=== PATIENT | female | born 1945 | race Caucasian/White ===

== ENCOUNTER 2017-03-16 01:03 | Emergency (ER) | payer MEDICARE, MEDICAID ==
[~2017-03-16] VITALS: Ht 160 cm; Wt 81.8 kg
[~2017-03-16 01:03] MED LIST: ASPI325T4 PO; CEFAZOLIN 2 GM IV; CHOL4POW3 PO; DIAZ5TAB PO; ENOX30SY4 SQ; ERGO500017 PO; HYDR-3241 PO; INSU100V5 SQ-INSULIN; INSU100V8 SQ; NPH,100V SQ-INSULIN; ONDA4VIA4 PO; OXYC5TAB3 PO; VANC1VIA3 PO
[2017-03-16 01:04] VITALS: BP 144/79
[2017-03-16] MEDS ORDERED: OXYcodone 5 MG/5 ML ORAL.SOL UDC PO ONE (03:00)
[2017-03-16] MEDS ORDERED: DIAZEPAM 5 MG TABLET PO ONE (03:00)
[2017-03-16] MEDS ORDERED: DIAZEPAM 5 MG TABLET ONE (03:17)
[2017-03-16] MEDS ORDERED: OXYcodone 5 MG/5 ML ORAL.SOL UDC ONE (03:24)
== END 2017-03-16 04:43 | disposition home or self-care (01) ==
LOC: ED 02:51
DX: M46.1 Sacroiliitis, not elsewhere classified (principal); M54.5 Low back pain; E11.9 Type 2 diabetes mellitus without complications; Z90.49 Acquired absence of other specified parts of digestive tract; Z90.89 Acquired absence of other organs; Z88.6 Allergy status to analgesic agent; Z88.0 Allergy status to penicillin; Z88.8 Allergy status to other drugs, medicaments and biological substances; Z79.4 Long term (current) use of insulin
CPT/HCPCS: 99284; J7512

== ENCOUNTER 2019-03-14 21:25 | Emergency (ER) | payer MEDICARE, MEDICAID ==
[~2019-03-14] VITALS: Ht 160 cm; Wt 75.7 kg
[~2019-03-14 21:25] MED LIST changes: +ASPI325T17 PO; -ASPI325T4 PO; -ONDA4VIA4 PO; +ONDA4VIA60 PO
[2019-03-14 21:27] VITALS: BP 176/81
[2019-03-14] MEDS ORDERED: KETOROLAC 30 MG/1 ML ONE (21:40)
[2019-03-14] MEDS ORDERED: KETOROLAC 30 MG/1 ML IM ONE ×2 (22:00)
== END 2019-03-14 22:56 | disposition home or self-care (01) ==
LOC: ED 22:16
DX: M17.11 Unilateral primary osteoarthritis, right knee (principal); E11.65 Type 2 diabetes mellitus with hyperglycemia; Z87.891 Personal history of nicotine dependence; W18.30XA Fall on same level, unspecified, initial encounter; Y93.89 Activity, other specified; Y92.410 Unspecified street and highway as the place of occurrence of the external cause; Y99.0 Civilian activity done for income or pay
CPT/HCPCS: 73564; 96372; 99283; J1885

== ENCOUNTER 2019-09-21 15:54 | Inpatient (IN) | payer MEDICARE, MEDICAID ==
[~2019-09-21] VITALS: Ht 160 cm; Wt 69.0 kg
[~2019-09-21 15:54] MED LIST changes: +FERR325T16 PO; +INSU100I11 SQ-INSULIN; +INSU100I13 SQ
[2019-09-21] MEDS ORDERED: TRAM50TA2 PO (16:22)
[2019-09-21] MEDS ORDERED: FENTANYL PF 100 MCG/2ML ONE ×2 (16:29→17:47)
[2019-09-21] MEDS ORDERED: ONDANSETRON 2MG/ML, 2ML IV PRN ×2 (16:30→21:00)
[2019-09-21] MEDS ORDERED: PROMETHAZINE 25 MG/ML, 1ML IV PRN (16:30)
[2019-09-21] MEDS ORDERED: MEPERIDINE/PF 25MG/ML,1ML IVPush PRN (16:30)
[2019-09-21] MEDS ORDERED: OXYcodone 5 MG/5 ML ORAL.SOL UDC PO PRN (16:30)
[2019-09-21] MEDS ORDERED: EPHEDRINE 50 MG/ML, 1ML IVPush PRN (16:30)
[2019-09-21] MEDS ORDERED: HYDROmorphone 2 MG/ML, 1ML IVPush PRN (16:30)
[2019-09-21] MEDS ORDERED: hydrALAzine 20 MG/ML, 1ML IV PRN (16:30)
[2019-09-21] MEDS ORDERED: LABETALOL 5MG/ML, 20ML IV PRN (16:30)
[2019-09-21] MEDS ORDERED: SODIUM CHLORIDE 0.9% PF 10ML ONE (16:32)
[2019-09-21] MEDS ORDERED: DEXAMETHASONE 4 MG/ML, 1ML ONE ×2 (16:32)
[2019-09-21] MEDS ORDERED: SUCCINYLCHOLINE 20 MG/ML, 10ML ONE (16:32)
[2019-09-21] MEDS ORDERED: NEOSTIGMINE 1 MG/ML, 10ML ONE (16:32)
[2019-09-21] MEDS ORDERED: LIDOCAINE-MPF 2% ,5ML ONE (16:32)
[2019-09-21] MEDS ORDERED: LACTATED RINGERS 1,000 ML IV ONE (16:55)
[2019-09-21] MEDS ORDERED: KETOROLAC 30 MG/1 ML ONE (17:20)
[2019-09-21] MEDS ORDERED: BUPIVACAINE/PF 0.5% ONE (17:29)
[2019-09-21] MEDS ORDERED: OXYcodone 5 MG/5 ML ORAL.SOL UDC ONE (17:48)
[2019-09-21] MEDS ORDERED: HYDROmorphone 1 MG/ML, 1ML VIAL ONE (17:48)
[2019-09-21] MEDS: FENTANYL PF 100 MCG/2ML IV PRN ×2 (17:49→17:58)
[2019-09-21] MEDS ORDERED: ENTER SLIDING SCALE INSULIN IF ORDERED XX PRN (21:00)
[2019-09-21] MEDS: HYDROmorphone 2MG TABLET PO PRN (23:39)
[2019-09-22 00:11] VITALS: BP 145/62
[2019-09-22] MEDS: POTASSIUM CHLORIDE 20 MEQ in LACTATED RINGERS 1,000 ML IV SCH ×2 (00:20→17:43)
[2019-09-22] MEDS: CEFOTETAN PMX 1GM/50ML 50 ML IVPB SCH ×2 (00:20→22:12)
[2019-09-22] MEDS: INSULIN GLARGINE 100 UNITS/ML, PEN SQ-INSULIN SCH ×2 (00:25→22:36)
[2019-09-22] MEDS: INSULIN REGULAR, HUMAN 100 UNIT/ML 3ML VIAL LOW DOSE SS SQ-INSULIN SCH ×5 (01:05→22:36)
[2019-09-22 04:07] VITALS: BP 154/78
[2019-09-22 08:00] VITALS: BP 168/79
[2019-09-22] MEDS ORDERED: BACITRACIN 50,000 UNIT ONE (09:26)
[2019-09-22] MEDS ORDERED: FENTANYL PF 100 MCG/2ML ONE (10:09)
[2019-09-22] MEDS ORDERED: NEOSPORIN OINT, 15GM ONE (10:54)
[2019-09-22] MEDS ORDERED: CEFAZOLIN 1,000 MG ONE (10:58)
[2019-09-22] MEDS ORDERED: PROPOFOL 10 MG/ML, 20ML ONE (10:58)
[2019-09-22] MEDS ORDERED: DEXAMETHASONE 4 MG/ML, 1ML ONE (10:58)
[2019-09-22] MEDS ORDERED: ONDANSETRON 2MG/ML, 2ML ONE (10:58)
[2019-09-22] MEDS ORDERED: FENTANYL PF 100 MCG/2ML IV PRN (11:30)
[2019-09-22] MEDS ORDERED: ACETAMINOPHEN 325 MG TABLET PO PRN (11:30)
[2019-09-22] MEDS ORDERED: PROMETHAZINE 25 MG/ML, 1ML IV PRN (11:30)
[2019-09-22] MEDS ORDERED: HYDROmorphone 2 MG/ML, 1ML IVPush PRN (11:30)
[2019-09-22] MEDS ORDERED: MEPERIDINE/PF 25MG/0.5ML IVPush PRN (11:30)
[2019-09-22] MEDS ORDERED: DIAZEPAM 5 MG/ML, 2ML IVPush PRN (11:30)
[2019-09-22] MEDS ORDERED: OXYcodone 5 MG/5 ML ORAL.SOL UDC PO PRN (11:30)
[2019-09-22] MEDS ORDERED: ALBUTEROL SULFATE 2.5 MG/3 ML NPPB PRN (11:30)
[2019-09-22] MEDS ORDERED: LABETALOL 5MG/ML, 20ML IV PRN (11:30)
[2019-09-22] MEDS ORDERED: hydrALAzine 20 MG/ML, 1ML IV PRN (11:30)
[2019-09-22] MEDS ORDERED: KETOROLAC 30 MG/1 ML IV PRN (11:30)
[2019-09-22 11:59] VITALS: BP 159/76
[2019-09-22 14:00] VITALS: BP 145/66
[2019-09-22] MEDS: HYDROmorphone 2 MG/ML, 1ML IVPush PRN (15:45)
[2019-09-22] MEDS: HYDROmorphone 2MG TABLET PO PRN ×3 (17:47→23:05)
[2019-09-22 18:51] VITALS: BP 137/64
[2019-09-23 00:40] VITALS: BP 117/61
[2019-09-23 03:14] VITALS: BP 115/62
[2019-09-23] MEDS: HYDROmorphone 2MG TABLET PO PRN (05:15)
[2019-09-23] MEDS: INSULIN REGULAR, HUMAN 100 UNIT/ML 3ML VIAL LOW DOSE SS SQ-INSULIN SCH ×4 (07:00→20:32)
[2019-09-23 08:30] VITALS: BP 138/69
[2019-09-23] MEDS: POTASSIUM CHLORIDE 20 MEQ in LACTATED RINGERS 1,000 ML IV SCH (10:56)
[2019-09-23] MEDS: OXYcodone IR 5MG TABLET PO PRN ×3 (10:57→20:19)
[2019-09-23 14:25] VITALS: BP 139/69
[2019-09-23 20:10] VITALS: BP 144/77
[2019-09-23] MEDS: INSULIN GLARGINE 100 UNITS/ML, PEN SQ-INSULIN SCH (20:32)
[2019-09-24] MEDS: POTASSIUM CHLORIDE 20 MEQ in LACTATED RINGERS 1,000 ML IV SCH ×2 (00:28→14:27)
[2019-09-24] MEDS: OXYcodone IR 5MG TABLET PO PRN ×4 (00:33→15:31)
[2019-09-24 02:00] VITALS: BP 133/70
[2019-09-24 07:10] VITALS: BP 146/78
[2019-09-24] MEDS: INSULIN REGULAR, HUMAN 100 UNIT/ML 3ML VIAL LOW DOSE SS SQ-INSULIN SCH ×2 (07:35→11:25)
[2019-09-24] MEDS: HYDROmorphone 2 MG/ML, 1ML IVPush PRN (07:40)
[2019-09-24 14:05] VITALS: BP 127/64
[2019-09-24 15:29] VITALS: BP 124/66
== END 2019-09-24 16:15 | DRG 240 ==
LOC: ORIP 15:54 → 4NE 20:00
PROVIDERS: ADMIT Surgery; ATTEND Surgery
PROC: 0Y6N0Z0 Detachment at Left Foot, Complete, Open Approach (ICD-10-PCS; 2019-09-21)
PROC: 3E0T3BZ Introduction of Anesthetic Agent into Peripheral Nerves and Plexi, Percutaneous Approach (ICD-10-PCS; 2019-09-21)
PROC: 3E0T3BZ Introduction of Anesthetic Agent into Peripheral Nerves and Plexi, Percutaneous Approach (ICD-10-PCS; 2019-09-22)
PROC: 0Y6J0Z1 Detachment at Left Lower Leg, High, Open Approach (ICD-10-PCS; principal; 2019-09-22 10:00)
DX: E11.52 Type 2 diabetes mellitus with diabetic peripheral angiopathy with gangrene (principal); I96 Gangrene, not elsewhere classified; J44.9 Chronic obstructive pulmonary disease, unspecified; I10 Essential (primary) hypertension; F17.200 Nicotine dependence, unspecified, uncomplicated; Z99.81 Dependence on supplemental oxygen
CPT/HCPCS: 82962; 88307; 88311; G0378; J0690; J1100; J1170; J1815; J1885; J2405; J2704; J2710; J3010; J3480; J0330; J3490; J7120

== ENCOUNTER 2020-01-27 11:31 | Inpatient (IN) | payer MEDICARE, MEDICAID ==
[~2020-01-27] VITALS: Ht 160 cm; Wt 65.2 kg
[~2020-01-27 11:31] MED LIST changes: +TRAM50TA2 PO
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
--- NOTE | 2020-01-27 12:05 | NUR ---
pa at bedside to evaluate at this time.
[2020-01-27] MEDS ORDERED: DIPH,PERTUSS(ACELL),TET VAC/PF 0.5 ML IM-VACC ONE ×2 (12:11→12:30)
--- NOTE | 2020-01-27 12:15 | NUR ---
TDAP GIVEN AT THIS TIME. PT TOLERATED WELL.
[2020-01-27 12:25] LABS: BASOPHILS # (AUTO) 0.04 x10^3/uL (0-0.1); BASOPHILS % (AUTO) 1 % (0-1); EOSINOPHILS # (AUTO) 0.14 x10^3/uL (0-0.4); EOSINOPHILS % (AUTO) 2 % (1-7); LYMPHOCYTES % (AUTO) 20 % (22-44); MD NO; MEAN CORPUSCULAR HEMOGLOBIN 28.8 pg (27.0-34.8); MEAN CORPUSCULAR HGB CONC 32.9 g/dL (32.4-35.8); MEAN CORPUSCULAR VOLUME 87.5 fL (80-100); MEAN PLATELET VOLUME 9.6 fL (7.4-10.4); MONOCYTES # (AUTO) 0.45 x10^3/uL (0.2-0.8); MONOCYTES % (AUTO) 6 % (2-9); NEUTROPHILS # (AUTO) 5.74 x10^3/uL (1.8-6.8); NEUTROPHILS % (AUTO) 72 % (42-75); PLATELET COUNT 277 x10^3/uL (130-400); RED BLOOD COUNT 4.55 x10^6/uL (3.82-5.3); RED CELL DISTRIBUTION WIDTH 15.7 % (9.6-15.2)
[2020-01-27] MEDS ORDERED: SODIUM CHLORIDE FLUSH 10ML SYR IVF ONE (12:30)
[2020-01-27 12:36] LABS: ALANINE AMINOTRANSFERASE 13 U/L (12-78); ALBUMIN 2.8 g/dL (3.4-5.0); ANION GAP 5 mmol/L (5-15); CALCIUM 9.4 mg/dL (8.5-10.1); CHLORIDE 100 mmol/L (98-107); CREATININE 0.92 mg/dL (0.55-1.02)
[2020-01-27 12:38] LABS: ALKALINE PHOSPHATASE 129 U/L (45-117); BILIRUBIN,TOTAL 0.2 mg/dL (0.2-1.0)
--- NOTE | 2020-01-27 12:58 | NUR ---
report given to sonal tomlin.
[2020-01-27] MEDS ORDERED: SODIUM CHLORIDE 0.9% 1,000ML IVBOLUS ONE (13:30)
--- NOTE | 2020-01-27 13:35 | NUR ---
report received from AMY Herrmann at bedside. pt a&o, resps even and unlabored, nadn. bp and spo2 monitors in place pt to be admitted, pt updated with POC, agreeable.
--- NOTE | 2020-01-27 13:44 | NUR ---
labs and imaging reviewed by NIEVES Stephens, awaiting abx order. Per , pt does not need blood cx.
[2020-01-27] MEDS ORDERED: VANCOMYCIN PER PHARMACY MC PRN (14:00)
[2020-01-27] MEDS ORDERED: CEFEPIME 1 GM in DEXTROSE 5% 50 ML IV ONE (14:00)
--- NOTE | 2020-01-27 14:25 | NUR ---
piv placed by AMY Grier, report called to AMY Marrufo. Task RN Bill at bedside to admin meds. pt to be transported to medical floor shortly.
--- NOTE | 2020-01-27 14:43 | NUR ---
ACTUAL WEIGHT TAKEN AND DOCUMENTED. PHARMACY CALLED TO NOTIFY OF WEIGHT FOR VANCO PREP. IV CEFEPIME AND NS BOLUS STARTED.
[2020-01-27] MEDS ORDERED: VANCOMYCIN PER PHARMACY MC ONE (15:00)
[2020-01-27] MEDS ORDERED: VANCOMYCIN 1,500 MG in SODIUM CHLORIDE 0.9% 250 ML IV ONE (15:00)
[2020-01-27] MEDS ORDERED: SODIUM CHLORIDE 0.9% 1,000 ML IV SCH (15:08)
[2020-01-27] MEDS ORDERED: MORPHINE SULFATE 4 MG/ML, 1ML IVPush PRN (15:30)
[2020-01-27] MEDS ORDERED: ONDANSETRON 2MG/ML, 2ML IVPush PRN (15:30)
[2020-01-27] MEDS ORDERED: ONDANSETRON ODT 4 MG PO PRN (15:30)
[2020-01-27 16:17] VITALS: BP 172/78
[2020-01-27 16:51] LABS: HCT (SEDRATE) 37.1 % (34.6-47.8)
[2020-01-27] MEDS: CEFTAROLINE 600 MG in SODIUM CHLORIDE 0.9% 100 ML IV SCH (17:48)
[2020-01-27] MEDS: INSULIN LISPRO 100 UNITS/ML, PEN SQ-INSULIN SCH ×2 (17:48→21:10)
[2020-01-27 18:21] VITALS: BP 150/74
[2020-01-27] MEDS ORDERED: [UNRECOGNIZED DRUG - REMARK] MC PRN (22:30)
[2020-01-27] MEDS: OXYcodone IR 5MG TABLET PO PRN (23:36)
[2020-01-28 00:43] VITALS: BP 157/72
[2020-01-28 05:57] LABS: BASOPHILS # (AUTO) 0.06 x10^3/uL (0-0.1); BASOPHILS % (AUTO) 1 % (0-1); EOSINOPHILS # (AUTO) 0.22 x10^3/uL (0-0.4); EOSINOPHILS % (AUTO) 3 % (1-7); LYMPHOCYTES % (AUTO) 22 % (22-44); MD NO; MEAN CORPUSCULAR HEMOGLOBIN 28.9 pg (27.0-34.8); MEAN CORPUSCULAR HGB CONC 32.8 g/dL (32.4-35.8); MEAN CORPUSCULAR VOLUME 88.2 fL (80-100); MEAN PLATELET VOLUME 9.7 fL (7.4-10.4); MONOCYTES # (AUTO) 0.55 x10^3/uL (0.2-0.8); MONOCYTES % (AUTO) 7 % (2-9); NEUTROPHILS % (AUTO) 67 % (42-75); PLATELET COUNT 247 x10^3/uL (130-400); RED CELL DISTRIBUTION WIDTH 16.1 % (9.6-15.2)
[2020-01-28 06:06] LABS: ALBUMIN 2.5 g/dL (3.4-5.0); ANION GAP 5 mmol/L (5-15); CALCIUM 8.6 mg/dL (8.5-10.1); CHLORIDE 107 mmol/L (98-107)
[2020-01-28 06:18] LABS: ALANINE AMINOTRANSFERASE 12 U/L (12-78); ALKALINE PHOSPHATASE 112 U/L (45-117); BILIRUBIN,TOTAL 0.4 mg/dL (0.2-1.0); CREATININE 0.83 mg/dL (0.55-1.02); TOTAL PROTEIN 6.2 g/dL (6.4-8.2)
[2020-01-28 07:09] VITALS: BP 147/73
[2020-01-28] MEDS ORDERED: INSULIN GLARGINE 100 UNITS/ML, PEN SQ-INSULIN SCH (09:00)
[2020-01-28] MEDS: INSULIN LISPRO 100 UNITS/ML, PEN SQ-INSULIN SCH ×4 (09:02→20:46)
[2020-01-28] MEDS: CEFTAROLINE 600 MG in SODIUM CHLORIDE 0.9% 100 ML IV SCH (10:25)
[2020-01-28] MEDS: OXYcodone IR 5MG TABLET PO PRN ×2 (10:25→22:07)
[2020-01-28] MEDS ORDERED: BACITRACIN 50,000 UNIT ONE (14:18)
[2020-01-28] MEDS ORDERED: PROPOFOL 10 MG/ML, 20ML ONE (14:22)
[2020-01-28] MEDS ORDERED: FENTANYL PF 250 MCG/5ML ONE (14:22)
[2020-01-28] MEDS ORDERED: SUCCINYLCHOLINE 20 MG/ML, 10ML ONE (14:22)
[2020-01-28] MEDS ORDERED: ONDANSETRON 2MG/ML, 2ML IV PRN (14:30)
[2020-01-28] MEDS ORDERED: HYDROmorphone 2 MG/ML, 1ML IVPush PRN (14:30)
[2020-01-28] MEDS ORDERED: OXYcodone 5 MG/5 ML ORAL.SOL UDC PO PRN (14:30)
[2020-01-28] MEDS ORDERED: hydrALAzine 20 MG/ML, 1ML IV PRN (14:30)
[2020-01-28] MEDS ORDERED: LABETALOL 5MG/ML, 20ML IV PRN (14:30)
[2020-01-28] MEDS ORDERED: PROMETHAZINE 25 MG/ML, 1ML IV PRN (14:30)
[2020-01-28] MEDS ORDERED: DEXAMETHASONE 4 MG/ML, 1ML ONE (14:54)
[2020-01-28] MEDS ORDERED: OMNIPAQUE 350 MG/ML, 50 ML BOTTLE IV ONE (15:20)
[2020-01-28] MEDS ORDERED: VISIPAQUE 270 MG/ML, 50ML BOTTLE IV ONE (15:26)
[2020-01-28] MEDS ORDERED: HEPARIN 1,000 UNITS/ML, 10ML ONE (15:50)
[2020-01-28] MEDS ORDERED: PROTAMINE SULFATE 10 MG/ML, 5ML ONE (15:58)
[2020-01-28] MEDS ORDERED: VISIPAQUE 320MG/ML, 50ML BOTTLE IV ONE (16:06)
[2020-01-28] MEDS ORDERED: ONDANSETRON 2MG/ML, 2ML ONE (16:07)
[2020-01-28] MEDS ORDERED: BUPIVACAINE/PF 0.25% ONE (16:24)
[2020-01-28] MEDS ORDERED: VANCOMYCIN PER PHARMACY MC PRN (16:30)
[2020-01-28] MEDS ORDERED: VISIPAQUE 320 MG/ML, 150ML BOTTLE ONE (16:39)
[2020-01-28] MEDS ORDERED: VISIPAQUE 270 MG/ML, 50ML BOTTLE ONE (16:39)
[2020-01-28] MEDS ORDERED: LABETALOL 5MG/ML, 20ML ONE (16:56)
[2020-01-28] MEDS ORDERED: FENTANYL PF 100 MCG/2ML ONE (17:08)
[2020-01-28] MEDS: FENTANYL PF 100 MCG/2ML IV PRN ×2 (17:10→18:00)
[2020-01-28] MEDS: CEFTRIAXONE PMX 1GM/50ML 50 ML IV SCH (18:57)
[2020-01-28 19:08] VITALS: BP 123/74
[2020-01-28] MEDS ORDERED: VANCOMYCIN 1,600 MG in SODIUM CHLORIDE 0.9% 250 ML IV ONE (20:00)
[2020-01-28] MEDS ORDERED: PHARMACOKINETIC MONITORING MC PRN (20:00)
[2020-01-28] MEDS: METRONIDAZOLE PMX 500MG/100ML 100 ML IV SCH (20:11)
[2020-01-28] MEDS: INSULIN GLARGINE 100 UNITS/ML, PEN SQ-INSULIN SCH (20:46)
[2020-01-28] MEDS ORDERED: CEFTAROLINE 400 MG in SODIUM CHLORIDE 0.9% 100 ML IV SCH (23:00)
[2020-01-29 01:19] VITALS: BP 120/85
[2020-01-29] MEDS: OXYcodone IR 5MG TABLET PO PRN ×3 (02:38→21:43)
[2020-01-29] MEDS: METRONIDAZOLE PMX 500MG/100ML 100 ML IV SCH ×3 (04:02→21:44)
[2020-01-29 04:58] VITALS: BP 128/65
[2020-01-29 05:27] LABS: ALBUMIN 2.1 g/dL (3.4-5.0); ANION GAP 7 mmol/L (5-15); CALCIUM 8.6 mg/dL (8.5-10.1); CHLORIDE 107 mmol/L (98-107)
[2020-01-29 05:28] LABS: BASOPHILS # (AUTO) 0.02 x10^3/uL (0-0.1); BASOPHILS % (AUTO) 0 % (0-1); EOSINOPHILS # (AUTO) 0.02 x10^3/uL (0-0.4); EOSINOPHILS % (AUTO) 0 % (1-7); LYMPHOCYTES % (AUTO) 12 % (22-44); MD NO; MEAN CORPUSCULAR HEMOGLOBIN 29.3 pg (27.0-34.8); MEAN CORPUSCULAR HGB CONC 32.9 g/dL (32.4-35.8); MEAN CORPUSCULAR VOLUME 89.3 fL (80-100); MEAN PLATELET VOLUME 9.3 fL (7.4-10.4); MONOCYTES # (AUTO) 0.35 x10^3/uL (0.2-0.8); MONOCYTES % (AUTO) 5 % (2-9); NEUTROPHILS # (AUTO) 6.11 x10^3/uL (1.8-6.8); NEUTROPHILS % (AUTO) 83 % (42-75); PLATELET COUNT 194 x10^3/uL (130-400); RED BLOOD COUNT 3.61 x10^6/uL (3.82-5.3); RED CELL DISTRIBUTION WIDTH 15.9 % (9.6-15.2)
[2020-01-29 05:30] LABS: ALANINE AMINOTRANSFERASE 20 U/L (12-78); ALKALINE PHOSPHATASE 129 U/L (45-117); BILIRUBIN,TOTAL 0.4 mg/dL (0.2-1.0); CREATININE 0.73 mg/dL (0.55-1.02); TOTAL PROTEIN 5.5 g/dL (6.4-8.2)
[2020-01-29 06:52] VITALS: BP 127/90
[2020-01-29] MEDS: INSULIN LISPRO 100 UNITS/ML, PEN SQ-INSULIN SCH ×4 (08:08→21:58)
[2020-01-29] MEDS: INSULIN GLARGINE 100 UNITS/ML, PEN SQ-INSULIN SCH ×2 (09:09→21:57)
[2020-01-29] MEDS: CLOPIDOGREL 75 MG TABLET PO SCH (09:09)
[2020-01-29] MEDS: ENOXAPARIN 40 MG/0.4 ML SQ SCH (12:10)
[2020-01-29 12:47] VITALS: BP 116/59
[2020-01-29] MEDS: CEFTRIAXONE PMX 1GM/50ML 50 ML IV SCH (18:20)
[2020-01-29 18:37] VITALS: BP 124/58
[2020-01-29] MEDS ORDERED: VANCOMYCIN 1,200 MG in SODIUM CHLORIDE 0.9% 250 ML IV SCH (20:00)
[2020-01-30 04:15] VITALS: BP 149/76
[2020-01-30 05:56] LABS: MEAN CORPUSCULAR HEMOGLOBIN 29.2 pg (27.0-34.8); MEAN CORPUSCULAR HGB CONC 32.8 g/dL (32.4-35.8); MEAN PLATELET VOLUME 9.4 fL (7.4-10.4); PLATELET COUNT 210 x10^3/uL (130-400); RED BLOOD COUNT 3.55 x10^6/uL (3.82-5.3)
[2020-01-30 06:01] LABS: ANION GAP 5 mmol/L (5-15); CALCIUM 8.5 mg/dL (8.5-10.1); CHLORIDE 102 mmol/L (98-107); CREATININE 0.79 mg/dL (0.55-1.02)
[2020-01-30] MEDS: METRONIDAZOLE PMX 500MG/100ML 100 ML IV SCH ×4 (06:14→21:07)
[2020-01-30 06:23] LABS: MD YES
[2020-01-30 06:24] LABS: BAND#(MANUAL) 0.27 x10^3/uL; BANDS%(MANUAL) 3 % (0-7); LYMPH#(MANUAL) 2.58 x10^3/uL (1-3.4); LYMPHS% (MANUAL) 29 % (22-44); MONOS#(MANUAL) 0.71 x10^3/uL (0.3-2.7); MONOS% (MANUAL) 8 % (2-9); SEG#(MANUAL) 5.34 x10^3/uL (1.8-6.8); SEGS% (MANUAL) 60 % (42-75)
[2020-01-30 06:25] LABS: <PLATELET ESTIMATE> ADEQUATE; <PLT MORPHOLOGY> NORMAL PLT MORPH; ANISOCYTOSIS 1+
[2020-01-30] MEDS: INSULIN LISPRO 100 UNITS/ML, PEN SQ-INSULIN SCH ×4 (07:00→20:51)
[2020-01-30 07:23] VITALS: BP 116/69
[2020-01-30] MEDS: CLOPIDOGREL 75 MG TABLET PO SCH (09:05)
[2020-01-30] MEDS: INSULIN GLARGINE 100 UNITS/ML, PEN SQ-INSULIN SCH ×2 (09:06→20:51)
[2020-01-30 09:32] VITALS: BP 161/84
[2020-01-30] MEDS: ENOXAPARIN 40 MG/0.4 ML SQ SCH (11:11)
[2020-01-30] MEDS: SODIUM CHLORIDE 0.9% 1,000 ML IV SCH (11:11)
[2020-01-30 11:13] LABS: FIO2 RA %
[2020-01-30 11:52] LABS: ALANINE AMINOTRANSFERASE 66 U/L (12-78); ALBUMIN 2.3 g/dL (3.4-5.0); ANION GAP 7 mmol/L (5-15); CALCIUM 8.4 mg/dL (8.5-10.1); CHLORIDE 103 mmol/L (98-107)
[2020-01-30 11:54] LABS: ALKALINE PHOSPHATASE 250 U/L (45-117); BILIRUBIN,TOTAL 0.3 mg/dL (0.2-1.0); CREATININE 0.73 mg/dL (0.55-1.02); TOTAL PROTEIN 5.9 g/dL (6.4-8.2)
[2020-01-30 12:26] VITALS: BP 15/81
[2020-01-30] MEDS ORDERED: MAGNESIUM HYDROXIDE 8%, 30ML UDC ONE (17:21)
[2020-01-30] MEDS ORDERED: MAGNESIUM HYDROXIDE 8%, 30ML UDC PO PRN (17:30)
[2020-01-30] MEDS: CEFTRIAXONE PMX 1GM/50ML 50 ML IV SCH (17:43)
[2020-01-30 19:25] VITALS: BP 159/76
[2020-01-30] MEDS: OXYcodone IR 5MG TABLET PO PRN (21:07)
[2020-01-31 01:11] VITALS: BP 155/79
[2020-01-31] MEDS: SODIUM CHLORIDE 0.9% 1,000 ML IV SCH (02:35)
[2020-01-31] MEDS: OXYcodone IR 5MG TABLET PO PRN ×2 (03:42→11:23)
[2020-01-31] MEDS: METRONIDAZOLE PMX 500MG/100ML 100 ML IV SCH (05:08)
[2020-01-31 05:55] LABS: ANION GAP 4 mmol/L (5-15); BASOPHILS # (AUTO) 0.03 x10^3/uL (0-0.1); BASOPHILS % (AUTO) 1 % (0-1); CALCIUM 8.1 mg/dL (8.5-10.1); CHLORIDE 105 mmol/L (98-107); EOSINOPHILS # (AUTO) 0.12 x10^3/uL (0-0.4); EOSINOPHILS % (AUTO) 2 % (1-7); LYMPHOCYTES % (AUTO) 14 % (22-44); MD NO; MEAN CORPUSCULAR HEMOGLOBIN 29.2 pg (27.0-34.8); MEAN CORPUSCULAR HGB CONC 32.9 g/dL (32.4-35.8); MEAN CORPUSCULAR VOLUME 88.7 fL (80-100); MEAN PLATELET VOLUME 9.5 fL (7.4-10.4); MONOCYTES # (AUTO) 0.66 x10^3/uL (0.2-0.8); MONOCYTES % (AUTO) 9 % (2-9); NEUTROPHILS # (AUTO) 5.24 x10^3/uL (1.8-6.8); NEUTROPHILS % (AUTO) 74 % (42-75); PLATELET COUNT 199 x10^3/uL (130-400); RED BLOOD COUNT 3.48 x10^6/uL (3.82-5.3); RED CELL DISTRIBUTION WIDTH 16.1 % (9.6-15.2)
[2020-01-31 05:58] LABS: ALANINE AMINOTRANSFERASE 52 U/L (12-78); ALKALINE PHOSPHATASE 244 U/L (45-117); BILIRUBIN,TOTAL 0.4 mg/dL (0.2-1.0); CREATININE 0.57 mg/dL (0.55-1.02); TOTAL PROTEIN 5.5 g/dL (6.4-8.2)
[2020-01-31] MEDS: INSULIN LISPRO 100 UNITS/ML, PEN SQ-INSULIN SCH ×2 (07:00→11:23)
[2020-01-31 08:16] VITALS: BP 151/75
[2020-01-31] MEDS: INSULIN GLARGINE 100 UNITS/ML, PEN SQ-INSULIN SCH (08:44)
[2020-01-31] MEDS: CLOPIDOGREL 75 MG TABLET PO SCH (08:44)
[2020-01-31] MEDS ORDERED: MULTIVITAMIN 1 TABLET PO SCH (09:00)
[2020-01-31] MEDS ORDERED: BISACODYL 10 MG SUPP PR PRN (10:30)
[2020-01-31] MEDS ORDERED: POLYETHYLENE GLYCOL 17 GM PACKET PO SCH (10:30)
[2020-01-31] MEDS ORDERED: SENNA/DOCUSATE TABLET PO SCH (10:30)
[2020-01-31] MEDS: ENOXAPARIN 40 MG/0.4 ML SQ SCH (11:30)
[2020-01-31] MEDS ORDERED: INSU100I13 SQ (13:26)
[2020-01-31] MEDS ORDERED: Sulfameth./Trimethoprim Ds PO (13:26)
[2020-01-31] MEDS ORDERED: SENN-193 PO (13:26)
[2020-01-31] MEDS ORDERED: MULT1TAB60 PO (13:26)
[2020-01-31] MEDS ORDERED: CLOP75TA PO (13:26)
[2020-01-31 15:35] VITALS: BP 154/82
[2020-01-31] MEDS ORDERED: SULFAMETH./TRIMETHOPRIM DS 800MG/160MG TABLET PO SCH (21:00)
== END 2020-01-31 16:20 | DRG 240 ==
LOC: ED 12:08 → EDIP 13:45 → 3N 14:58 → 4NE 01-28 18:43
PROVIDERS: ADMIT Internal Medicine; ATTEND Internal Medicine
PROC: 0Y6M0Z9 Detachment at Right Foot, Partial 1st Ray, Open Approach (ICD-10-PCS; 2020-01-28)
PROC: 0Y6M0ZB Detachment at Right Foot, Partial 2nd Ray, Open Approach (ICD-10-PCS; 2020-01-28)
PROC: B41F1ZZ Fluoroscopy of Right Lower Extremity Arteries using Low Osmolar Contrast (ICD-10-PCS; 2020-01-28)
PROC: B41C1ZZ Fluoroscopy of Pelvic Arteries using Low Osmolar Contrast (ICD-10-PCS; 2020-01-28)
PROC: 0Y6M0ZC Detachment at Right Foot, Partial 3rd Ray, Open Approach (ICD-10-PCS; 2020-01-28)
PROC: 0Y6M0ZD Detachment at Right Foot, Partial 4th Ray, Open Approach (ICD-10-PCS; 2020-01-28)
PROC: 0Y6M0ZF Detachment at Right Foot, Partial 5th Ray, Open Approach (ICD-10-PCS; 2020-01-28)
PROC: 047H3DZ Dilation of Right External Iliac Artery with Intraluminal Device, Percutaneous Approach (ICD-10-PCS; principal; 2020-01-28 13:30)
DX: E11.51 Type 2 diabetes mellitus with diabetic peripheral angiopathy without gangrene (principal); L03.115 Cellulitis of right lower limb; E87.1 Hypo-osmolality and hyponatremia; M86.8X7 Other osteomyelitis, ankle and foot; L97.519 Non-pressure chronic ulcer of other part of right foot with unspecified severity; E11.69 Type 2 diabetes mellitus with other specified complication; Z87.891 Personal history of nicotine dependence; Z83.3 Family history of diabetes mellitus; E78.5 Hyperlipidemia, unspecified; J44.9 Chronic obstructive pulmonary disease, unspecified; Z90.49 Acquired absence of other specified parts of digestive tract; R74.8 Abnormal levels of other serum enzymes; B95.61 Methicillin susceptible Staphylococcus aureus infection as the cause of diseases classified elsewhere; E11.65 Type 2 diabetes mellitus with hyperglycemia; I70.8 Atherosclerosis of other arteries; I70.209 Unspecified atherosclerosis of native arteries of extremities, unspecified extremity; Z79.4 Long term (current) use of insulin; Z88.0 Allergy status to penicillin; Z90.710 Acquired absence of both cervix and uterus
CPT/HCPCS: 36415; 36600; 74181; 75710; 76705; 80048; 80053; 82140; 82803; 82962; 83036; 84443; 85025; 85651; 86140; 87040; 87070; 87077; 87186; 87205; 88307; 88311; 90715; 93926; C1725; C1729; G0378; J0692; J0696; J0712; J1100; J1644; J1650; J2405; J2704; J2720; J3010; J3370; J3490; Q9966; Q9967; C1876; J0330; J1815; J2270; J7030; J7050